=== PATIENT | male | born 1995 | race African-American/Black ===

== ENCOUNTER 2021-02-13 02:15 | Emergency (ER) | payer OTHER ==
[~2021-02-13] VITALS: Ht 177.8 cm; Wt 59.0 kg
--- NOTE | 2021-02-13 02:40 | NUR ---
Dr. Chaudhry at bedside MSE in progress. Patient is A/O x4, cooperative, able to verblly express concerns. Ambulatory. No SOB or labored breathing.
[2021-02-13] MEDS ORDERED: [UNRECOGNIZED DRUG - CODE] TP (02:50)
--- NOTE | 2021-02-13 02:59 | NUR ---
Patient discharged to home in stable condition. Written and verbal after care instructions given. Patient verbalizes understanding of instructions. Stressed follow up or return to ER for worsening s/s. Steady gait.
[2021-02-13 03:01] VITALS: BP 118/76
== END 2021-02-13 03:01 | disposition home or self-care (01) ==
LOC: ER 02:27
DX: A63.0 Anogenital (venereal) warts (principal)
CPT/HCPCS: A4663

== ENCOUNTER 2024-08-13 02:35 | Emergency (ER) | payer MEDICAID, OTHER ==
[~2024-08-13] VITALS: Ht 177.8 cm; Wt 68.0 kg
[~2024-08-13 02:35] MED LIST: [UNRECOGNIZED DRUG - CODE] TP
[2024-08-13] MEDS ORDERED: CEPH500C2 PO (02:55)
[2024-08-13] MEDS ORDERED: CEphaleXIN 500 MG CAPSULE ONE (02:59)
[2024-08-13] MEDS: CEphaleXIN 500 MG CAPSULE PO ONE (03:01)
[2024-08-13 03:22] VITALS: BP 128/78; TEMP 98.5; O2SAT 99
== END 2024-08-13 03:20 | disposition home or self-care (01) ==
LOC: ER 02:52
DX: M79.644 Pain in right finger(s) (principal); L03.818 Cellulitis of other sites; M79.89 Other specified soft tissue disorders; F17.200 Nicotine dependence, unspecified, uncomplicated; F14.10 Cocaine abuse, uncomplicated; F12.10 Cannabis abuse, uncomplicated; Z60.2 Problems related to living alone
CPT/HCPCS: A4606; A4663

== ENCOUNTER 2024-11-24 07:59 | Emergency (ER) | payer MEDICAID, OTHER ==
[~2024-11-24] VITALS: Ht 177.8 cm; Wt 73.0 kg
[~2024-11-24 07:59] MED LIST changes: +CEPH500C2 PO
[2024-11-24 08:42] LABS: BASOPHILS % (AUTO) 0.2 % (0.0-2.0); EOSINOPHILS # (AUTO) 0.2 K/uL (0.0-0.7); HEMATOCRIT 36.5 % (36.7-47.1); HEMOGLOBIN 12.5 g/dL (12.5-16.3); LYMPHOCYTES # (AUTO) 2.6 K/uL (0.8-4.8); LYMPHOCYTES % (AUTO) 32.1 % (20.5-51.5); MEAN CORPUSCULAR HEMOGLOBIN 30.7 uug (23.8-33.4); MEAN CORPUSCULAR HGB CONC 34 g/dL (32.5-36.3); MONOCYTES # (AUTO) 0.8 K/uL (0.1-1.30); MONOCYTES % (AUTO) 9.6 % (0.0-11.0); NEUTROPHILS # (AUTO) 4.5 K/uL (1.8-8.9); NEUTROPHILS % (AUTO) 56.1 % (38.5-71.5); PLATELET COUNT (AUTO) 259 K/uL (152-348); RED BLOOD CELL COUNT(AUTO) 4.05 MIL/uL (4.06-5.63); RED CELL DISTRIBUTION WIDTH 14.5 % (12.1-16.2)
[2024-11-24 08:46] LABS: DIFFERENTIAL COMMENT 1
[2024-11-24 08:48] LABS: CARBON DIOXIDE 27 mmol/L (21-32); CHLORIDE 102 mmol/L (98-107); CREATININE 0.8 mg/dL (0.6-1.3); GLUCOSE 104 mg/dL (74-106); POTASSIUM 3.5 mmol/L (3.5-5.1); SODIUM SERUM 138 mmol/L (136-145); UREA NITROGEN, BLOOD 11 mg/dL (7-18)
[2024-11-24] MEDS: SULFAMETHOXAZOL/TRIMETHOPRI IV 20 ML in IV DEXTROSE 5% 500 ML IV ONE (09:07)
[2024-11-24] MEDS ORDERED: LIDOCAINE 1%-EPI 1:100,000 20 ML VIAL ONE (10:10)
[2024-11-24] MEDS: LIDOCAINE 1%-EPI 1:100,000 20 ML VIAL IJ ONE (10:11)
[2024-11-24] MEDS ORDERED: LEVO500T90 PO (10:37)
[2024-11-24] MEDS ORDERED: SULF1TAB48 PO (10:37)
[2024-11-24] MEDS ORDERED: NEOMY/BACITRA/POLYMYXIN B OINT UD PACKET TP ONE (10:41)
[2024-11-24] MEDS: NEOMY/BACITRA/POLYMYXIN B OINT UD PACKET TP ONE (10:46)
[2024-11-24 11:10] VITALS: BP 124/74; TEMP 98.7; O2SAT 100
== END 2024-11-24 11:11 | disposition home or self-care (01) ==
LOC: ER 07:59
DX: S60.512A Abrasion of left hand, initial encounter (principal); L02.512 Cutaneous abscess of left hand; M79.632 Pain in left forearm; F12.90 Cannabis use, unspecified, uncomplicated; F17.200 Nicotine dependence, unspecified, uncomplicated; Z60.2 Problems related to living alone; W26.8XXA Contact with other sharp object(s), not elsewhere classified, initial encounter; Y93.9 Activity, unspecified; Y92.9 Unspecified place or not applicable; Y99.9 Unspecified external cause status
CPT/HCPCS: 99285; 96365; 76881; 96366; 80048; 85025; 36415; 73090; 73120; J3490; J7060; A4606; A4663